=== PATIENT | female | born 1930 | race Caucasian/White ===

== ENCOUNTER 2017-09-07 08:33 | Day surgery (SDC) | payer OTHER, MEDICARE ==
[~2017-09-07] VITALS: Ht 149.9 cm; Wt 61.6 kg
[~2017-09-07 08:33] MED LIST: AMLODIPINE BESYL5 MG PO; ASPIR 8181 M1 PO; CRESTOR20 MG PO; ERGOCALCIF50000 UNIT PO; FOLIC ACID1 MG PO; FUROSEMIDE20 MG PO; IRON325 M1 PO; KLOR-CON 1010 ME1 PO; LEVOTHYROXINE125 MCG PO; LOPRESSOR50 MG PO; PANTOPRAZOLE SO40 MG PO
[2017-09-07 09:32] LABS: HEMATOCRIT 27.7 % (36.0-46.0); HEMOGLOBIN 8.7 G/DL (11.9-15.5); MCH 28.4 PG (29.0-34.0); MCHC 31.4 G/DL (30.0-36.0); MCV 90.5 FL (83-99); PLATELET COUNT 312 K/uL (156-360); RBC DIS.WIDTH-CV 15.2 % (11.8-14.6); RBC DIS.WIDTH-SD 50.4 % (39-53); RED BLOOD COUNT 3.06 M/uL (3.80-5.20); WHITE BLOOD COUNT 7.1 K/uL (4.1-10.2)
[2017-09-07 09:59] LABS: CHLORIDE 114 MEQ/L (99-109); CREATININE 3.8 MG/DL (0.6-1.3); GFR ESTIMATE (CALCULATED) 12 mL/min/; GLUCOSE 106 mg/dL (70-99); POTASSIUM 4.2 MEQ/L (3.7-5.4); SODIUM 143 MEQ/L (136-147); UREA NITROGEN (BUN) 50 mg/dL (9-23)
[2017-09-07 10:04] VITALS: BP 193/74
[2017-09-07 13:38] VITALS: BP 168/67
[2017-09-07 14:25] VITALS: BP 164/70
== END 2017-09-07 14:25 | disposition home or self-care (01) ==
LOC: SDC 08:33
PROVIDERS: Surgery
PROC: 0WHG43Z Insertion of Infusion Device into Peritoneal Cavity, Percutaneous Endoscopic Approach (ICD-10-PCS; principal; 2017-09-07)
DX: I12.0 Hypertensive chronic kidney disease with stage 5 chronic kidney disease or end stage renal disease (principal); N18.6 End stage renal disease; E03.9 Hypothyroidism, unspecified; I25.2 Old myocardial infarction; Z87.891 Personal history of nicotine dependence; Z79.82 Long term (current) use of aspirin; Z86.73 Personal history of transient ischemic attack (TIA), and cerebral infarction without residual deficits
CPT/HCPCS: 80048; 85027; 93005; J0690; J1100; J2405; J2710; J3010; J7643; S0020